=== PATIENT | female | born 1945 | race Caucasian/White ===

== ENCOUNTER → 2018-01-03 | Outpatient (CLI) | payer OTHER | END | disposition home or self-care (01) | LOC: ECHO 12:43 | DX: R06.09 Other forms of dyspnea (principal) | CPT/HCPCS: 93017; 93350 ==

== ENCOUNTER → 2020-12-16 | Outpatient (CLI) | payer MEDICARE, OTHER ==
[~2020-12-16] MED LIST: LIDOCAINE 1% Multi-Dose 20 ML VIAL. INJ ONE; LIDOCAINE 2%/EPI 1:100,000 20 ML VIAL. INJ ONE
--- NOTE | 2020-12-16 13:43 | RAD ---
EXAM: 1. STEREOTACTICALLY GUIDED VACUUM ASSISTED LEFT BREAST CORE BIOPSY. 2. POSTCLIP DIGITAL LEFT MAMMOGRAPHY. 3. SPECIMEN RADIOGRAPH. HISTORY: Left breast microcalcifications. Stereotactic biopsy is requested. FINDINGS: The procedure and its risks and benefits were discussed with the patient. Risks discussed i ncluded, but were not limited to, pain, infection, bleeding and need for repeat biopsy. The patient p rovided verbal and written consent. A timeout procedure was performed. The target calcifications inferomedially were localized stereotactically. The overlying skin was ster ilely prepped and infiltrated with 1% lidocaine for local anesthesia. The deeper soft tissues were in filtrated with lidocaine with epinephrine for anesthesia and hemostasis. A 9 gauge vacuum-assisted co re biopsy system was advanced to the target under stereotactic guidance. 6 core biopsy specimens were obtained. A specimen radiograph demonstrates the target calcifications within the specimen. A postbi opsy clip was placed and postoperative images were obtained. Instrumentation was withdrawn and pressu re held and hemostasis. A sterile dressing was placed. There were no immediate complications. Postclip digital left mammography was obtained in CC and MLO projections and interpreted on a [employer] ed workstation. The postbiopsy clip corresponds with the target lesion, along the posterior aspect of the involved region. There are mild postprocedural changes. IMPRESSION: 1. Successful stereotactically guided vacuum assisted core biopsy of left breast microcalcifications with clip placement. 2. The target calcifications are included on the specimen radiograph. 3. Postclip mammography demonstrates the postbiopsy clip in correspondence with the target lesion. Electronically signed by: Liliana Barahona MD (12/16/2020 9:58 AM) [id number]
--- NOTE | 2020-12-18 16:10 | PATHOLOGY ---
[facility] Accession Number: [id number] . 01 Material submitted: . breast - LEFT BREAST TISSUE. Modifiers: left . 01 Clinical history: . LEFT BREAST CALCIFICATIONS LEFT BREAST STEREOTACTIC BIOPSY OBTAINED: 9:25AM FORMALIN: 9:36AM ABNORMAL MAMMO . 02 Diagnosis: Breast tissue, left breast stereotactic needle biopsies: - DUCTAL CARCINOMA IN SITU, LOW GRADE, CRIBRIFORM TYPE, WITH ASSOCIATED CALCIFICATIONS. SEE COMMENT. . (JPM:mm; 12/17/2020) [facility] 12/17/2020 1544 Local . 02 Comment: Sections of the left breast stereotactic needle biopsy reveal multiple cores of breast tissue. Nearly every core shows at least focal involvement by low grade ductal carcinoma in situ of cribriform type. Ductal carcinoma in situ is associated with calcifications. The largest focus of DCIS measures approximately 1.0 cm in length. . Breast prognostic studies will be obtained on A2, the results of which will be reported separately. . The case is also examined by Dr. Abraham Singh, who concurs with the diagnosis. . (JPM:mm; 12/17/2020) . 02 Electronically signed: . Raul Walker MD, Pathologist NPI- [id number] . 01 Gross description: . Received in formalin labeled "[place], [place] and left breast tissue". Received are multiple white-yellow fibroadipose breast tissue cores ranging from 1.0-2.0 cm in length and 0.3-0.4 cm in diameter. The specimen is entirely submitted in cassettes A1 thru A4. The specimen was collected 12/17/2019 at 0925 hours and placed in formalin and 0936 hours. The specimen will be removed from formalin on 12/16/2020 and 2340 hours. The specimen will be in formalin more than 6 hours and less than 72 hours.(J; 12/16/2020) BLJ/BLJ 12/16/2020 1642 Local . 02 Pathologist provided ICD-10: D05.12 . 02 CPT . 134366 Specimen Comment: A courtesy copy of this report has been sent to [phone] Specimen Comment: [phone], Specimen Comment: Report sent to , DR ANAYA / DR WEBB Performed at: 01 [facility] [address] [place] [address] [address], [place] [id number] MD Abraham Singh MD Phone: [phone] Performed at: 02 [facility] [address] [place] [id number] MD Raul Walker MD Phone: [phone]
== END | disposition home or self-care (01) ==
LOC: MAMMO 08:30
PROVIDERS: ATTEND Surgery
DX: R92.0 Mammographic microcalcification found on diagnostic imaging of breast (principal); D05.12 Intraductal carcinoma in situ of left breast; R92.8 Other abnormal and inconclusive findings on diagnostic imaging of breast
CPT/HCPCS: 19081; 77065; J3490

== ENCOUNTER 2021-01-21 15:13 | Emergency (ER) | payer MEDICARE ==
[~2021-01-21] VITALS: Ht 152.4 cm; Wt 66.0 kg
[2021-01-21 17:34] VITALS: BP 165/74
--- NOTE | 2021-01-21 19:14 | PHYS DOC ---
Past Medical History Additional Past Medical Histor: breast ca Past Surgical History: Appendectomy, Cholecystectomy, Hysterectomy Additional Past Surgical Histo: hernia sx, colon sx General Adult EDM: Chief Complaint: KNEE SWELLING HPI: HPI: Patient is a 75 year old female who presents the emergency department complaining of a red area on her left knee that seems painful to touch that has been there for the last couple of days. Patient states she first noticed it yesterday in the morning and thought she may have been bit by mosquito or something however when she woke up this morning she noticed to have doubled in size and was starting to extend down her leg. Patient reports only mild pain to palpation on the medial aspect of her right knee, denies any other aches or pains. Denies loss of sensation to her right leg. Patient states she can walk normally. Denies any other rashes of her skin. Denies any recent fever or chills. States she is a type II diabetic and takes lisinopril for high blood pressure, denies any allergies to medications. Patient denies any other physical complaints or physical concerns. Review of Systems: Review of Systems: 14 body systems of review of systems have been reviewed. See HPI for pertinent positives and negative responses, otherwise all other systems are negative, nonpertinent or noncontributory. Constitutional: Negative except as outlined in HPI above. Skin: Negative except as outlined in HPI above. Eyes: Negative except as outlined in HPI above. HENT: Negative except as outlined in HPI above. Respiratory: Negative except as outlined in HPI above. Cardiovascular: Negative except as outlined in HPI above. GI: Negative except as outlined in HPI above. : Negative except as outlined in HPI above. Musculoskeletal: Negative except as outlined in HPI above. Integument: Negative except as outlined in HPI above. Neurologic: Negative except as outlined in HPI above. Endocrine: Negative except as outlined in HPI above. Lymphatic: Negative except as outlined in HPI above. Psychiatric: Negative except as outlined in HPI above. Heart Score: C/O Chest Pain: No Risk Factors: Risk Factors: DM, Current or recent (<one month) smoker, HTN, HLP, family history of CAD, obesity. Risk Scores: Score 0 - 3: 2.5% MACE over next 6 weeks - Discharge Home Score 4 - 6: 20.3% MACE over next 6 weeks - Admit for Clinical Observation Score 7 - 10: 72.7% MACE over next 6 weeks - Early Invasive Strategies Allergies: Allergies: Allergies Coded Allergies Type Severity Reaction Last Updated Verified No Known Drug Allergies 12/16/20 No Physical Exam: PE: Constitutional: Well developed, well nourished, no acute distress, non-toxic appearance. 75-year-old female in no apparent distress. HENT: Normocephalic, atraumatic. Eyes: Conjunctiva normal, no discharge. Neck: Normal range of motion, no stridor. Cardiovascular: No cyanosis appreciated, distal cap refill less than 2 seconds. Lungs & Thorax: Patient is in no respiratory distress, no audible adventitious lung sounds appreciated. Abdomen: Nontender, no abnormalities noted. Skin: Warm, dry, no erythema, no rash. See extremity note for focus skin examination Back: No tenderness, no deformities. Extremities: No tenderness, no cyanosis, no clubbing, ROM intact, no edema. Except for right knee has erythematous skin surfaces around kneecap area with extension of erythema approximately 5 cm distally anteriorly of tib-fib. No in duration, skin is intact, no lymphangitis appreciated, no loss of sensation, 2+ posterior tibial/dorsalis pedis pulse, distal cap refill less than 2 seconds, no loss of sensation, no edema appreciated. Skin temperature normal and consistent with left lower extremity. Neurologic: Alert and oriented X 3, normal motor function, normal sensory function, no focal deficits noted. Psychologic: Affect normal, judgement normal, mood normal. Current Patient Data: Vital Signs: Vital Signs Date Time Temp Pulse Resp B/P (MAP) Pulse Ox O2 Delivery O2 Flow Rate FiO2 01/21/21 17:34 97.9 80 12 165/74 98 97.9 EKG: EKG: [] Radiology/Procedures: Radiology/Procedures: [] Course & Med Decision Making: Course & Med Decision Making Pertinent Labs and Imaging studies reviewed. (See chart for details) 71-year-old female, vital signs reviewed, presents to the emergency department c oncerning right knee redness. Physical examination consistent with cellulitic infection. Discussed findings with patient, will start on p.o. Keflex for cellulitis 4 times daily x7 days, first dose in ED today, will give 600 mg ibuprofen for mild pain with palpation, there is no weeping of the skin, the skin was intact. Patient has good close follow-up with her primary care physi erna Dr. Webb. Patient states she will see this week. Discussed with the patient all findings and diagnostic testing as well as the need to follow-up with their primary care provider for further evaluation and treatment or return to the ED if any new or worsening symptoms. Strict return precautions were also discussed at length, the patient voiced understanding and agreement with the discharge planning. The patient was nontoxic in appearance, in no apparent distress, and hemodynamically stable at the time of disposition. Dragon Disclaimer: Dragon Disclaimer: This electronic medical record was generated, in whole or in part, using a voice recognition dictation system. Departure Departure Impression: Primary Impression: Cellulitis of right knee Disposition: HOME / SELF CARE / HOMELESS Condition: GOOD Referrals: SUSANNA WEBB MD (PCP) Patient Instructions: Cellulitis Additional Instructions: You were seen today for a redness type infection of your right knee. As we discussed this is called a cellulitis. This is a infection of your skin. You were started today on an oral antibiotic called Keflex or cephalexin, you will take this 4 times a day for the next 7 days. Please take as directed until complete. Please follow-up with Dr. Webb this week for a reexamination of this knee infection. As we discussed if becoming worse please come back to the emergency department and expect an admission to the hospital as you would have failed outpatient oral antibiotic therapy. You may use [id number] Tylenol or preferably an NSAID such as ibuprofen or Naprosyn for pain. Thank you for visiting our Emergency Department. It was a pleasure taking care of you today in the emergency department and we appreciate you trusting us with your care. If any additional problems come up don't hesitate to return to visit us. Please follow up with your primary care provider so they can plan additional care if needed and know about the problem that you had. If symptoms worsen come back to the Emergency Department. Any concerning symptoms that start such as chest pain, shortness of air, weakness or numbness on one side of the body, running high fevers or any other concerning symptoms return to the ER. EMERGENCY DEPARTMENT GENERAL DISCHARGE INSTRUCTIONS Thank you for coming to [facility] Emergency Department (ED) today and trusting us with you care. We trust that you had a positive experience in our Emergency Department. If you wish to speak to the department management, you may call the Director at [phone]. YOUR FOLLOW UP INSTRUCTIONS ARE FOLLOWS: 1. Do you have a private Doctor? If you do not have a private doctor, please ask for a resource list of physicians or clinics that may be able to assist you with follow up care. 2. The Emergency Physicain has interpreted your x-rays. The X-Ray specialist will also review them. If there is a change in the findings, you will be notified in 48 hours when at all possible. 3. A lab test or culture has been done, your results will be reviewed and you will be notified if you need a change in treatment. ADDITIONAL INSTRUCTIONS AND INFORMATION: 1. Your care today has been supervised by a physician who is specially trained in emergency care. Many problems require more than one evaluation for a complete diagnosis and treatment. We recommend that you schedule your follow up appointment as recommended to ensure complete treatment of you illness or injury. If you are unable to obtain follow up care and continue to have a problem, or if your condition worsens, we recommend that you return to the ED. 2. We are not able to safely determine your condition over the phone nor are we able to give sound medical advice over the phone. For these safety reasons, if you call for medical advice we will ask you to come to the ED for further evaluation. 3. If you have any questions regarding these discharge instructions please call the ED at [phone]. SAFETY INFORMATION: In the interest of safety, wellness, and injury prevention; we encourage you to wear your sealbelt, if you smoke; quite smoking, and we encourage family to use a protective helmet for bicycling and other sporting events that present an increased risk for head injury. IF YOUR SYMPTOMS WORSEN OR NEW SYMPTOMS DEVELOP, OR YOU HAVE CONCERNS ABOUT YOUR CONDITION; OR IF YOUR CONDITION WORSENS WHILE YOU ARE WAITING FOR YOUR FOLLOW UP APPOINTMENT; EITHER CONTACT YOUR PRIMARY CARE DOCTOR, THE PHYSICIAN WHOSE NAME AND NUMBER YOU WERE GIVEN, OR RETURN TO THE ED IMMEDIATELY. Scripts Ibuprofen (IBUPROFEN) 600 Mg Tablet 600 MG PO PRN Q6HRS PRN for INFLAMMATION, #20 TAB 0 Refills Prov: SHELDON PÉREZ APRN 01/21/21 Cephalexin (CEPHALEXIN) 500 Mg Tablet 1 TAB PO QID for 7 Days, #28 TAB 0 Refills Prov: SHELDON PÉREZ APRN 01/21/21 SHELDON PÉREZ APRN Jan 21, 2021 19:14
[2021-01-21] MEDS ORDERED: IBUPROFEN 200 MG TABLET. PO ONE (19:15)
[2021-01-21] MEDS ORDERED: CEPHALEXIN 250 MG CAPSULE. PO STA (19:15)
[2021-01-21] MEDS ORDERED: CEPH500T PO (19:21)
[2021-01-21] MEDS ORDERED: IBUP-1007 PO (19:21)
== END 2021-01-21 19:37 | disposition home or self-care (01) ==
LOC: ER 15:13
DX: L03.116 Cellulitis of left lower limb (principal)
CPT/HCPCS: 99283

== ENCOUNTER 2021-01-29 07:40 | Day surgery (SDC) | payer MEDICARE ==
[~2021-01-29] VITALS: Ht 154.9 cm; Wt 68.0 kg
[~2021-01-29 07:40] MED LIST changes: +ACETAMINOPHEN 500 MG TABLET PO PRN; +CEPH500T PO; +CRESTOR40 MG PO; +GLIP2.5T4 PO; +HYDROmorphone 2 MG/ML VIAL IVP PRN; +IBUP-1007 PO; +IV RINGERS,LACTATED 1000ML 1,000 ML IV SCH; -LIDOCAINE 1% Multi-Dose 20 ML VIAL. INJ ONE; -LIDOCAINE 2%/EPI 1:100,000 20 ML VIAL. INJ ONE; +LISI-517 PO; +METF10007 PO; +MORPHINE SULFATE 2 MG/ML INJ. IVP PRN; +PROCHLORPERAZINE 10 MG/2 ML VIAL. IVP PRN; +ceFAZolin SODIUM IV Push 1 GM VIAL. IVP PRN; +fentaNYL PF VIAL 100 MCG/2 ML VIAL IVP PRN
[2021-01-29] MEDS ORDERED: LIDOCAINE 1% Multi-Dose 20 ML VIAL. INJ ONE (08:00)
[2021-01-29 08:12] VITALS: BP 156/67
[2021-01-29] MEDS ORDERED: INSULIN LISPRO 100 UNIT/ML 3ML VIAL for OP,RR ONLY. SQ PRN (08:15)
[2021-01-29] MEDS ORDERED: SCOPOLAMINE 1.5MG PATCH. TD ONE (08:15)
[2021-01-29] MEDS ORDERED: INSULIN LISPRO 100 UNIT/ML 3ML VIAL for OP,RR ONLY. SQ ONE (08:30)
--- NOTE | 2021-01-29 09:04 | PDOC1 ---
History and Physical Date of Admission Date of Admission DATE: 01/29/21 TIME: 09:01 Identification/Chief Complaint Chief Complaint Left breast biopsy showing ductal carcinoma in situ Source Source: Chart review, Patient History of Present Illness History of Present Illness 75-year-old female status post stereotactic breast biopsy pathology showing ductal carcinoma in situ with cribriform component to the left breast. Past Medical History Cardiovascular: HTN, Hyperlipidemia Pulmonary: No pertinent hx GI: No pertinent hx Heme/Onc: No pertinent hx Hepatobiliary: No pertinent hx Psych: Anxiety Rheumatologic: No pertinent hx Infectious disease: No pertinent hx ENT: No pertinent hx Renal/: No pertinent hx Endocrine: Diabetes Dermatology: No pertinent hx Past Surgical History Past Surgical History: Cholecystectomy, Hernia Repair, Hysterectomy, Colon Resection Family History Family History: No Significant Social History Smoke: No ALCOHOL: none Drugs: None Current Medications Current Medications Current Medications Fentanyl Citrate (Fentanyl 2ml Vial) 25 mcg PRN Q5MIN PRN IVP MILD PAIN 1-3; Start 01/29/21 at 06:00; Stop 01/30/21 at 05:59 Fentanyl Citrate (Fentanyl 2ml Vial) 50 mcg PRN Q5MIN PRN IVP MODERATE PAIN 4- 6; Start 01/29/21 at 06:00; Stop 01/30/21 at 05:59 Morphine Sulfate (Morphine Sulfate) 1 mg PRN Q10MIN PRN IVP SEVERE PAIN 7-10; Start 01/29/21 at 06:00; Stop 01/30/21 at 05:59 Ringer's Solution 1,000 ml @ 30 mls/hr Q24H IV Last administered on 01/29/21at 08:22; Start 01/29/21 at 06:00; Stop 01/29/21 at 17:59 Hydromorphone HCl (Dilaudid) 0.5 mg PRN Q10MIN PRN IVP SEVERE PAIN 7-10, 2nd CHOICE; Start 01/29/21 at 06:00; Stop 01/30/21 at 05:59 Prochlorperazine Edisylate (Compazine) 5 mg PACU PRN PRN IVP NAUSEA, MRX1; Start 01/29/21 at 06:00; Stop 01/30/21 at 05:59 Acetaminophen (Tylenol) 1,000 mg 1X PREOP PRN PO PRIOR TO PROCEDURE Last administered on 01/29/21at 08:28; Start 01/29/21 at 06:00; Stop 01/29/21 at 18:00 Cefazolin Sodium (Ancef) 1 gm 1X PREOP PRN IVP PRIOR TO PROCEDURE; Start 01/29/21 at 06:00; Stop 01/29/21 at 18:00 Lidocaine HCl (Lidocaine 1% 20ml Vial) 20 ml 1X ONCE INJ ; Start 01/29/21 at 08:00; Stop 01/29/21 at 08:01; Status DC Scopolamine (Transderm-Scop) 1 patch 1X ONCE TD Last administered on 01/29/21at 08:27; Start 01/29/21 at 08:15; Stop 01/29/21 at 08:17; Status DC Insulin Human Lispro (HumaLOG VIAL for OP,RR ONLY) 0-10 units PRN Q1HR PRN SQ PER PROTOCOL Last administered on 01/29/21at 08:27; Start 01/29/21 at 08:15; Stop 01/30/21 at 08:14 Active Scripts Active Cephalexin 500 Mg Tablet 1 Tab PO QID 7 Days Reported Lisinopril 5 Mg Tablet 5 Mg PO DAILY Crestor (Rosuvastatin Calcium) 40 Mg Tablet 20 Mg PO HS Metformin Hcl 1,000 Mg Tablet 1,000 Mg PO BIDWMEALS Glipizide Er (Glipizide) 2.5 Mg Tab.er.24 2.5 Mg PO DAILY Allergies Allergies: Coded Allergies: No Known Drug Allergies (Unverified , 01/29/21) Physical Exam General: Alert, Oriented X3, Cooperative, No acute distress HEENT: Atraumatic, EOMI Lungs: Clear to auscultation, Normal air movement Heart: RRR, no murmurs Breasts: Normal Abdomen: Normal bowel sounds, Soft, No tenderness Rectal Exam: not examined Extremities: No edema Skin: No significant lesion Neuro: Normal speech Psych/Mental Status: Mental status NL Vitals Vitals Vital Signs Date Time Temp Pulse Resp B/P (MAP) Pulse Ox O2 Delivery O2 Flow Rate FiO2 01/29/21 08:18 97.9 68 20 156/67 96 Room Air 97.9 Labs Labs Laboratory Tests Test 01/29/21 08:21 Glucose (Fingerstick) 122 mg/dL (70-99) Laboratory Tests Test 01/29/21 08:21 Glucose (Fingerstick) 122 mg/dL (70-99) VTE Prophylaxis Ordered VTE Prophylaxis Devices: Yes VTE Pharmacological Prophylaxi: Contraindicated Assessment/Plan Assessment/Plan Left breast ductal carcinoma in situ with cribriform component. Plan lumpectomy and sentinel lymph node biopsy Justifications for Admission Other Justification CHRISTAL TOMLIN MD Jan 29, 2021 09:04
[2021-01-29] MEDS ORDERED: PROPOFOL 10 MG/ML (20ML) VIAL. IV ONE (10:33)
[2021-01-29] MEDS ORDERED: LIDOCAINE 1% PF 5 ML VIAL. ONE (10:33)
[2021-01-29] MEDS ORDERED: ISOSULFAN BLUE 1% 50 MG/5 ML VIAL. SQ ONE ×2 (10:34→10:35)
[2021-01-29] MEDS ORDERED: BUPIVACAINE-EPI 0.25%-1:200000 MPF 30 ML VIAL. ONE (10:34)
[2021-01-29] MEDS ORDERED: fentaNYL PF VIAL 100 MCG/2 ML VIAL ONE (10:34)
[2021-01-29] MEDS ORDERED: ONDANSETRON PF 4 MG/2 ML VIAL. ONE (10:54)
[2021-01-29] MEDS ORDERED: DEXAMETHASONE SOD PHOS 4 MG/ML VIAL ONE (10:54)
--- NOTE | 2021-01-29 11:53 | PDOC4 ---
Operative Note Operative Note Date: January 29, 2021 at 1149 Preoperative diagnosis: Left breast ductal carcinoma in situ Postoperative diagnosis: Same Procedure: Left breast lumpectomy with sentinel lymph node biopsy Surgeon: Rahul Specimen: [place] lymph node from left axilla and left breast lumpectomy specimen Dictation: Patient is a 75-year-old female was found to have ductal carcinoma in situ on biopsy. The procedure of lumpectomy with sentinel lymph node biopsy was explained to the patient detail risk-benefit were also discussed including bleeding infection alternatives to this procedure also discussed with the patient who seemed to understand and gave both verbal and written consent to have procedure performed. Patient was initially taken to radiology where a needle local was performed to localize previous biopsy site. Patient was then brought to the operating room placed in the supine position general anesthesia was initiated once patient was sleeping intubated her left chest was prepped and draped usual sterile fashion using ChloraPrep. Lymphazurin was injected in 4 quadrants around the nipple areolar complex this is allowed to percolate for 10 minutes. The left axilla was interrogated with the C-Trak finding an area with high ratings this was the area that was injected with quarter percent Marcaine with epinephrine incision was made 15 blade scalpel carried down through the subcutaneous tissues electrocautery until a lymph node was found which was marked with a Lymphazurin as being blue as well as a high count on the C-Trak of 3330. This lymph node was sent for pathology. Wound was packed with Ray-Darin and attention was turned to the breast lumpectomy area around the localizing needle was injected with quarter percent Marcaine with epinephrine an incision was made with 15 blade scalpel this carried down through subcutaneous tissues electrocautery right hemostasis excising a large area of breast tissue which was sent for x-ray which showed both the needle and the previous biopsy clip within the specimen. Wound was closed in 2 layers deep layer running 3-0 Vicryl and the skin was reapproximated for subcuticular Monocryl Mastisol Steri-Strips and island dressings were applied to the wounds. Patient was awakened and extubated in the operating room taken to recovery in stable condition all sponge instrument needle counts listed as correct estimated blood loss 10 mL CHRISTAL TOMLIN MD Jan 29, 2021 11:53
[2021-01-29] MEDS ORDERED: OXYC1TAB15 PO (11:55)
--- NOTE | 2021-01-29 11:57 | DISCH ---
DISCHARGE INSTRUCTIONS Condition on Discharge Condition on Discharge: Stable Activity After Discharge Activity Instructions for Disc: Activity as tolerated Diet after Discharge Diet after Discharge: Regular Wound Incision Care Other wound/incision instructi: May shower in 24 hours Contacting the DRVelvet after DC Call your doctor for: If your condition worsens Follow-Up Follow up with: Dr. Tomlin in 2 weeks CHRISTAL TOMLIN MD Jan 29, 2021 11:57
[2021-01-29] MEDS ORDERED: oxyCODONE/APAP 5/325 1 TAB TABLET ONE (12:39)
[2021-01-29 12:40] VITALS: BP 132/69
[2021-01-29] MEDS ORDERED: oxyCODONE/APAP 5/325 1 TAB TABLET PO ONE (12:45)
--- NOTE | 2021-01-29 13:13 | RAD ---
EXAM: Left breast needle-wire localization; left breast lymphoscintigraphy; left breast specimen radi ograph. HISTORY: 75-year-old female presents for needle-wire localization of a biopsy clip at the site of bio psy-proven ductal carcinoma in situ within the left breast. COMPARISON: 12/16/2020. TECHNIQUE AND FINDINGS: The risks and benefits of the procedure were discussed with the patient. Risk s discussed included, but were not limited to, pain, bleeding and infection. The patient provided wri tten and verbal consent. A timeout was performed. The patient's left breast was placed in mediolateral compression and orthogonal images were obtained. The biopsy clip at the site of residual clustered calcifications was localized and the decision was made to proceed in a medial approach. The skin overlying the anticipated entry site was sterilely pre pped and infiltrated with 1% lidocaine. A needle-wire hook system was then advanced to the biopsy clip. Orthogonal images were obtained to co nfirm appropriate needle tip position. Subsequently, the needle was removed over the wire with the w nuria hook within 1 mm from the biopsy clip. The wire was secured to the skin surface and craniocaudal and mediolateral oblique images were obtain ed. The images demonstrate the wire hook in appropriate position. Subsequently, the areola was sterilely prepped and 1.1 mCi Tilmanocept was injected intradermally in the inferior medial periareolar location. No image was obtained. The sonographic images were transferred to the surgical suite with the patient. The patient tolerate d the localization procedure without difficulty or immediate complication. A specimen radiograph was obtained. This demonstrates the localization wire and biopsy clip and surro unding calcifications of concern. The calcifications extends to a specimen margin. This information a nd the location of marginal calcifications was communicated to the referring surgeon at the time of s urgery. IMPRESSION: 1. Successful needle-wire localization of a biopsy clip and residual calcifications at the site of bi opsy-proven ductal carcinoma in situ within the inferior medial left breast. There is inclusion of th e biopsy clip and surrounding calcifications of concern, with extension calcification is to a specime n margin. This information was communicated to the referring surgeon at the time of surgery. 2. Left breast lymphoscintigraphy injection for sentinel node biopsy. Electronically signed by: Shahana Fair MD (01/29/2021 1:11 PM) [id number]
== END 2021-01-29 13:05 | disposition home or self-care (01) ==
LOC: SURG 07:40
PROVIDERS: ATTEND Surgery
DX: D05.12 Intraductal carcinoma in situ of left breast (principal); I10 Essential (primary) hypertension; E78.00 Pure hypercholesterolemia, unspecified; E11.9 Type 2 diabetes mellitus without complications; M19.90 Unspecified osteoarthritis, unspecified site; F41.9 Anxiety disorder, unspecified; Z90.710 Acquired absence of both cervix and uterus; Z90.49 Acquired absence of other specified parts of digestive tract; Z98.890 Other specified postprocedural states; Z79.899 Other long term (current) drug therapy; Z79.84 Long term (current) use of oral hypoglycemic drugs
CPT/HCPCS: 19281; 19302; 38505; 76098; 82962; A4209; A4364; A4930; A6402; A9520; C1819; J0690; J1100; J1815; J2405; J2704; J3010; J3490; Q9968; 88307; 88342; A4452

== ENCOUNTER → 2021-02-16 | Outpatient (CLI) | payer MEDICARE ==
[2021-01-29 12:40] VITALS: BP 132/69
[~2021-02-16] MED LIST changes: -ACETAMINOPHEN 500 MG TABLET PO PRN; -HYDROmorphone 2 MG/ML VIAL IVP PRN; -IV RINGERS,LACTATED 1000ML 1,000 ML IV SCH; -MORPHINE SULFATE 2 MG/ML INJ. IVP PRN; +OXYC1TAB15 PO; -PROCHLORPERAZINE 10 MG/2 ML VIAL. IVP PRN; -ceFAZolin SODIUM IV Push 1 GM VIAL. IVP PRN; -fentaNYL PF VIAL 100 MCG/2 ML VIAL IVP PRN
--- NOTE | 2021-02-16 10:55 | KCIC ---
EXAM: DUAL ENERGY X-RAY ABSORPTIOMETRY (DEXA). HISTORY: Postmenopausal screening. FINDINGS: The lowest measured T-score is -0.5 in the left hip, based on a bone mineral density of 0.8 76 g/cm^2. Refer to the worksheets for full detail. No comparison examinations are available. IMPRESSION: 1. Normal. Bone mineral density yields a T-score of -1.0 or greater. Fracture risk is low. 2. FRAX report: Not calculated. METHODOLOGY: Dual energy x-ray absorptiometry was performed to measure bone mineral density. The foll owing analysis is based on the 2019 Official Positions of the International Society for Clinical Dens itometry: Measurements of the hips and the average of L1-L4 are preferred. When the spine and/or hip cannot be feasibly measured or interpreted, or in the setting of hyperparathyroidism, distal radial bone minera l density may be measured. The lumbar spine T-score is based on the average bone mineral density of L1-L4. In the setting of art ifact or anatomic abnormality, some lumbar levels may be excluded, and the remaining levels used for calculation. A single lumbar level is not used for diagnosis, and if only a single level is available for assessment, another anatomic site will be used to assign a diagnosis. The hip T-score is based on the bone mineral density measurement of the femoral neck or total proxima l femur of either side, whichever is lowest. Bilateral mean values are not used for diagnosis. The forearm T-score is derived from 33% of the distal radius of the nondominant forearm. Electronically signed by: Shahana Fair MD (02/16/2021 10:52 AM) [id number]
== END ==
LOC: KCIC DEXA 09:44
PROVIDERS: ATTEND Internal Medicine Hematology & Oncology
DX: D05.12 Intraductal carcinoma in situ of left breast (principal); Z78.0 Asymptomatic menopausal state; Z17.0 Estrogen receptor positive status [ER+]
CPT/HCPCS: 77080

== ENCOUNTER → 2021-08-25 | Outpatient (CLI) | payer MEDICARE ==
[~2021-08-25] MED LIST changes: -LISI-517 PO; +LISI5TAB15 PO
[2021-08-25 09:32] LABS: BASO # 0.1 x10^3/uL (0.0-0.2); BASO % 1 % (0-3); EOS # 0.1 x10^3/uL (0.0-0.7); EOS % 2 % (0-3); HEMATOCRIT 34.4 % (36.0-47.0); HEMOGLOBIN 11.5 g/dL (12.0-15.5); LYMPH # 1.6 x10^3/uL (1.0-4.8); LYMPH % 23 % (24-48); MEAN CORPUSCULAR HEMOGLOBIN 30 pg (25-35); MEAN CORPUSCULAR HGB CONC 34 g/dL (31-37); MEAN CORPUSCULAR VOLUME 91 fL (79-100); MONO # 0.4 x10^3/uL (0.0-1.1); MONO % 5 % (0-9); NEUT # 4.8 x10^3/uL (1.8-7.7); NEUT % 69 % (31-73); PLATELET COUNT 245 x10^3/uL (140-400); RED CELL DISTRIBUTION WIDTH 12.8 % (11.5-14.5); WHITE BLOOD COUNT 6.9 x10^3/uL (4.0-11.0)
[2021-08-25 09:50] LABS: CREATININE 1.3 mg/dL (0.6-1.0); POTASSIUM 4.4 mmol/L (3.5-5.1)
[2021-08-25 09:59] LABS: ALBUMIN 3.4 g/dL (3.4-5.0); ALBUMIN/GLOBULIN RATIO 1.1 (1.0-1.7); TOTAL BILIRUBIN 0.3 mg/dL (0.2-1.0); TOTAL PROTEIN 6.6 g/dL (6.4-8.2)
== END ==
LOC: ONCLAB 08:59
PROVIDERS: ATTEND Physician Assistant
DX: D05.12 Intraductal carcinoma in situ of left breast (principal); E55.9 Vitamin D deficiency, unspecified
CPT/HCPCS: 36415; 80053; 82306; 83615; 85025

== ENCOUNTER → 2021-10-22 | Outpatient (CLI) | payer MEDICARE ==
--- NOTE | 2021-10-22 10:43 | RAD ---
PROCEDURE: MG DIGITAL BILAT DIAGNOSTIC MAMMO WITH TRISTA, US BREAST LT HISTORY: The patient is 75 years old and is seen for Reason: HX BREAST CANCER, SCREENING / Spl. Instr uctions: / History: . COMPARISON: December 16, 2020 and November 26, 2020 TECHNIQUE: CC and MLO views of both breasts were obtained. Images were processed by the [employer] computer-aided detection system. Additional spot compression views of the breasts bilaterally. Targe tamlea left breast ultrasound. DENSITY: There are scattered fibroglandular densities. FINDINGS: Left mammogram: Left inferior medial postlumpectomy changes. Focal asymmetry within the left superior breast posteriorly. Persistent on CC spot compression views and slightly less apparent on the MLO sp ot compression views. Approximately 11 cm from the nipple. Left ultrasound: No ultrasound evidence of abnormality correspond with mammographic finding. Right mammogram: Asymmetry within the right upper lateral breast less apparent on spot compression vi ews and likely overlapping fibroglandular tissue. IMPRESSION: 1. Asymmetry within the left superior breast, may represent overlapping fibroglandular tissue. Recom mend 6 month follow-up mammogram to further assess. 2. Left inferior medial breast postoperative changes. Recommend annual screening mammograms per [employer] guidelines. Patient will be due in six months. BI-RADS category 3 Probably benign Our clinic nurse has been instructed to assist with communicating findings and recommendations to the patient's referring physician and in scheduling follow-up. Patient entered into a reminder system for annual screening mammogram. Electronically signed by: Drew Seay DO (10/22/2021 10:41 AM) [id number]
--- NOTE | 2021-10-22 10:43 | RAD ---
PROCEDURE: MG DIGITAL BILAT DIAGNOSTIC MAMMO WITH TRISTA, US BREAST LT HISTORY: The patient is 75 years old and is seen for Reason: HX BREAST CANCER, SCREENING / Spl. Instr uctions: / History: . COMPARISON: December 16, 2020 and November 26, 2020 TECHNIQUE: CC and MLO views of both breasts were obtained. Images were processed by the [employer] computer-aided detection system. Additional spot compression views of the breasts bilaterally. Targe tamela left breast ultrasound. DENSITY: There are scattered fibroglandular densities. FINDINGS: Left mammogram: Left inferior medial postlumpectomy changes. Focal asymmetry within the left superior breast posteriorly. Persistent on CC spot compression views and slightly less apparent on the MLO sp ot compression views. Approximately 11 cm from the nipple. Left ultrasound: No ultrasound evidence of abnormality correspond with mammographic finding. Right mammogram: Asymmetry within the right upper lateral breast less apparent on spot compression vi ews and likely overlapping fibroglandular tissue. IMPRESSION: 1. Asymmetry within the left superior breast, may represent overlapping fibroglandular tissue. Recom mend 6 month follow-up mammogram to further assess. 2. Left inferior medial breast postoperative changes. Recommend annual screening mammograms per [employer] guidelines. Patient will be due in six months. BI-RADS category 3 Probably benign Our clinic nurse has been instructed to assist with communicating findings and recommendations to the patient's referring physician and in scheduling follow-up. Patient entered into a reminder system for annual screening mammogram. Electronically signed by: Drew Seay DO (10/22/2021 10:41 AM) [id number]
== END ==
LOC: MAMMO 08:56
PROVIDERS: ATTEND Physician Assistant
DX: N64.89 Other specified disorders of breast (principal); Z98.890 Other specified postprocedural states
CPT/HCPCS: 76641; 77066; G0279; 77062